=== PATIENT | female | born 1980 | race African-American/Black ===

== ENCOUNTER 2019-10-29 11:19 | Emergency (ER) | payer SELFPAY ==
[~2019-10-29] VITALS: Ht 152.4 cm; Wt 59.0 kg
[2019-10-29] MEDS ORDERED: FAMOTIDINE 20MG/2ML VIAL IV STA (11:39)
[2019-10-29] MEDS ORDERED: MORPHINE SULFATE 4 MG/ML CPJ (NOT FOR IM USE) IV STA (11:39)
[2019-10-29] MEDS ORDERED: SODIUM CHLORIDE 0.9% 1,000 ML IV ONE (11:39)
[2019-10-29 13:59] LABS: CLARITY URINE CLOUDY (CLEAR); COLOR URINE YELLOW (YELLOW); KETONES URINE 1+ (NEGATIVE); LEUKOCYTE ESTERASE URINE TRACE (NEGATIVE); NITRITE URINE NEGATIVE (NEGATIVE); OCCULT BLOOD URINE NEGATIVE (NEGATIVE); PH URINE 8.5 (4.5-8.0); PROTEIN URINE TRACE (NEGATIVE); SPECIFIC GRAVITY URINE 1.025 (1.005-1.030)
[2019-10-29 14:26] LABS: *AMPHETAMINES SCREEN URINE NEGATIVE (NEGATIVE); *BARBITURATES SCREEN URINE NEGATIVE (NEGATIVE); *BENZODIAZEPINES SCREEN URINE NEGATIVE (NEGATIVE); *COCAINE SCREEN URINE NEGATIVE (NEGATIVE); METHADONE URINE SCREEN NEGATIVE (NEGATIVE)
[2019-10-29 14:27] LABS: PHENCYCLIDINE URINE SCREEN NEGATIVE (NEGATIVE)
[2019-10-29 14:32] LABS: OPIATES URINE SCREEN PRESUMTIVE POSITIVE (NEGATIVE)
[2019-10-29 14:41] LABS: CANNABINOID URINE SCREEN NEGATIVE (NEGATIVE)
[2019-10-29 14:50] LABS: BASOPHILS % 0.8 % (0.0-2.0); HEMATOCRIT. 39.3 % (36.0-48.0); HEMOGLOBIN. 13.7 g/dL (12.0-16.0); LYMPHOCYTES % 14.8 % (20.0-50.0); MEAN CORPUSCULAR HEMOGLOBIN 30.6 pg (28.0-32.0); MEAN CORPUSCULAR VOLUME 87.9 fL (81.0-99.0); MONOCYTES % 2.5 % (2.0-8.0); NEUTROPHILS % 81.9 % (40.0-76.0); PLATELET 377 x1000/uL (130-400); RED BLOOD CELL COUNT 4.47 mill/uL (4.2-5.4); RED CELL DISTRIBUTION WIDTH 13.2 % (11.6-14.6)
[2019-10-29 14:51] LABS: CHLORIDE 107 mEq/L (98-107)
[2019-10-29 14:54] LABS: INR 1.1; PROTHROMBIN TIME 11.6 sec (9.6-11.0)
[2019-10-29 14:55] LABS: ETHANOL BLOOD < 10 mg/dL
[2019-10-29 15:00] LABS: HCG SCREEN NEGATIVE
[2019-10-29 15:10] VITALS: BP 144/85
[2019-10-29] MEDS ORDERED: MORPHINE SULFATE 4 MG/ML CPJ (NOT FOR IM USE) IV ONE (15:15)
== END 2019-10-29 15:30 | disposition left against medical advice (07) ==
LOC: ER 11:19
DX: R10.11 Right upper quadrant pain (principal); E87.6 Hypokalemia; R03.0 Elevated blood-pressure reading, without diagnosis of hypertension
CPT/HCPCS: 36415; 71045; 76705; 80053; 80305; 80320; 81003; 81025; 83690; 83735; 84703; 85025; 85610; 93005; 96374; 96375; 96376; 99285; J2270; J3490; J7030; G0480

== ENCOUNTER 2020-01-21 21:25 | Inpatient (IN) | payer BC, MEDICAID ==
[~2020-01-21] VITALS: Ht 162.6 cm; Wt 60.8 kg
[2020-01-21] MEDS ORDERED: FENTANYL CITRATE/PF 1,000 MCG in SODIUM CHLORIDE 0.9% 80 ML IV PRN ×4 (22:00)
[2020-01-21] MEDS ORDERED: SODIUM CHLORIDE 0.9% 1000ML BAG (SEPSIS BOLUS) IV ONE (22:00)
[2020-01-21] MEDS ORDERED: CEFEPIME HCL 1000MG/VIAL INJ IM ONE (22:00)
[2020-01-21] MEDS ORDERED: LORAZEPAM 2MG/ML CPJ ONE (22:03)
[2020-01-21] MEDS ORDERED: LORAZEPAM 2MG/ML CPJ IV ONE ×2 (22:15→23:00)
[2020-01-21 22:32] LABS: BASOPHILS % 0.5 % (0.0-2.0); EOSINOPHILS % 0.6 % (0.0-5.0); HEMATOCRIT. 36.7 % (36.0-48.0); HEMOGLOBIN. 12.4 g/dL (12.0-16.0); MEAN CORPUSCULAR HEMOGLOBIN 30.2 pg (28.0-32.0); MEAN CORPUSCULAR VOLUME 89.6 fL (81.0-99.0); MEAN PLATELET VOLUME 7.6 fl (7.4-10.4); MONOCYTES % 4.7 % (2.0-8.0); NEUTROPHILS % 48.2 % (40.0-76.0); PLATELET 396 x1000/uL (130-400)
[2020-01-21 22:42] LABS: CHLORIDE 96 mEq/L (98-107); INR 1.2; PROTHROMBIN TIME 12.2 sec (9.6-11.0)
[2020-01-21 22:53] LABS: HCG SCREEN NEGATIVE
[2020-01-21] MEDS ORDERED: LEVETIRACETAM 500MG PREMIX 100 ML IV ONE (23:00)
[2020-01-21 23:03] LABS: BG BASE EXCESS -8.2 mmol/L (-2.0-2.0); BG CARBOXYHEMOGLOBIN 0.3 % (0.5-1.5); BG DEOXYHEMOGLOBIN 0.3 % (0.0-5.0); BG FRACTION INSPIRED OXYGEN 100; BG HCO3 ACT 19.5 mmol/L (22.0-26.0); BG METHEMOGLOBIN 0.1 % (0.0-1.5); BG OXYGEN SATURATION 99.7 % (92.0-98.5); BG OXYHEMOGLOBIN 99.3 % (94.0-97.0); BG PCO2 49.2 mmHg (35.0-45.0); BG PH 7.217 (7.350-7.450); BG PO2 441.9 mmHg (75.0-100.0); BG SAMPLE SITE RIGHT RADIAL; BG TIDAL VOLUME(mL) 500 mL; BG TOTAL HEMOGLOBIN 12.3 g/dL (12.0-18.0); BG VENT MODE VENT - A/C; BG VENT RATE 16 set
[2020-01-21] MEDS ORDERED: PROPOFOL 10MG/ML 100ML 100 ML IV SCH (23:15)
[2020-01-21] MEDS ORDERED: KCL 20MEQ/100ML PREMIX 100 ML IV ONE (23:15)
[2020-01-21 23:16] LABS: CLARITY URINE CLEAR (CLEAR); COLOR URINE YELLOW (YELLOW); KETONES URINE NEGATIVE (NEGATIVE); LEUKOCYTE ESTERASE URINE NEGATIVE (NEGATIVE); NITRITE URINE NEGATIVE (NEGATIVE); OCCULT BLOOD URINE TRACE (NEGATIVE); PH URINE 6.5 (4.5-8.0); PROTEIN URINE 2+ (NEGATIVE); UROBILINOGEN URINE 0.2 E.U./dL (0.2-1.0)
[2020-01-22] VITALS (31 sets, daily range): BP systolic 107–146; BP diastolic 75–99
[2020-01-22] MEDS ORDERED: CEFEPIME 1,000 MG in DEXTROSE 5% WATER 50 ML IV SCH (00:15)
[2020-01-22] MEDS ORDERED: SODIUM CHLORIDE 0.45% 1,000 ML IV SCH (00:25)
[2020-01-22] MEDS ORDERED: ONDANSETRON HCL 4MG/2ML INJ IV PRN (00:30)
[2020-01-22] MEDS ORDERED: SODIUM CHLORIDE 0.9% 1,000 ML IV ONE (00:30)
[2020-01-22] MEDS ORDERED: CLONIDINE 0.1MG TABLET PO PRN (00:30)
[2020-01-22] MEDS ORDERED: LORAZEPAM 2MG/ML CPJ IV PRN (00:30)
[2020-01-22] MEDS ORDERED: DEXTROSE 50% WATER 50ML SYRINGE IV PRN (00:30)
[2020-01-22 05:10] LABS: *AMPHETAMINES SCREEN URINE NEGATIVE (NEGATIVE); *BARBITURATES SCREEN URINE NEGATIVE (NEGATIVE); CANNABINOID URINE SCREEN NEGATIVE (NEGATIVE); METHADONE URINE SCREEN NEGATIVE (NEGATIVE); PHENCYCLIDINE URINE SCREEN NEGATIVE (NEGATIVE)
[2020-01-22 05:11] LABS: *COCAINE SCREEN URINE NEGATIVE (NEGATIVE)
[2020-01-22 05:21] LABS: *BENZODIAZEPINES SCREEN URINE PRESUMTIVE POSITIVE (NEGATIVE); OPIATES URINE SCREEN PRESUMTIVE POSITIVE (NEGATIVE)
[2020-01-22 05:48] LABS: CHLORIDE 105 mEq/L (98-107)
[2020-01-22 05:51] LABS: BASOPHILS % 0.4 % (0.0-2.0); EOSINOPHILS % 0.2 % (0.0-5.0); HEMATOCRIT. 32.8 % (36.0-48.0); HEMOGLOBIN. 11.2 g/dL (12.0-16.0); MEAN CORPUSCULAR HEMOGLOBIN 30.2 pg (28.0-32.0); MEAN CORPUSCULAR VOLUME 88.5 fL (81.0-99.0); MEAN PLATELET VOLUME 7.5 fl (7.4-10.4); MONOCYTES % 6.3 % (2.0-8.0); NEUTROPHILS % 72.1 % (40.0-76.0); PLATELET 351 x1000/uL (130-400); RED BLOOD CELL COUNT 3.71 mill/uL (4.2-5.4); RED CELL DISTRIBUTION WIDTH 14.2 % (11.6-14.6)
[2020-01-22] MEDS: KCL 10MEQ/50ML PREMIX 50 ML IV SCH ×2 (06:52→07:05)
[2020-01-22] MEDS: HEPARIN 5000 UNITS/ML VIAL SUBCUT SCH ×3 (07:07→20:45)
[2020-01-22] MEDS ORDERED: BLOOD SUGAR DIAGNOSTIC STRIP TEST SCH (09:00)
[2020-01-22 09:54] LABS: BG BASE EXCESS -2.9 mmol/L (-2.0-2.0); BG CARBOXYHEMOGLOBIN 0.3 % (0.5-1.5); BG DEOXYHEMOGLOBIN 0.9 % (0.0-5.0); BG FRACTION INSPIRED OXYGEN 40; BG HCO3 ACT 20.1 mmol/L (22.0-26.0); BG METHEMOGLOBIN 0.4 % (0.0-1.5); BG OXYGEN SATURATION 99.1 % (92.0-98.5); BG OXYHEMOGLOBIN 98.4 % (94.0-97.0); BG PH 7.458 (7.350-7.450); BG PO2 186.2 mmHg (75.0-100.0); BG SAMPLE SITE RIGHT RADIAL; BG TIDAL VOLUME(mL) 500 mL; BG VENT MODE VENT - A/C; BG VENT RATE 16 set
[2020-01-22] MEDS ORDERED: POTASSIUM CHLORIDE INJ 40 MEQ in DEXT 5% WATER 250 ML IV SCH (11:00)
[2020-01-22] MEDS ORDERED: LEVETIRACETAM 500MG PREMIX 100 ML IV SCH (11:00)
[2020-01-22] MEDS ORDERED: MAGNESIUM 2 G PREMIX 50 ML IV SCH (11:00)
[2020-01-22] MEDS ORDERED: PROPOFOL 10MG/ML 100ML 100 ML IV SCH (11:00)
[2020-01-22] MEDS ORDERED: IPRATROPIUM/ALBUTEROL 0.5-3(2.5)MG/3ML NEB HHN PRN (11:00)
[2020-01-22] MEDS: INSULIN LISPRO 100 UNITS/ML SUBCUT SCH ×4 (13:08→23:24)
[2020-01-22] MEDS ORDERED: POTASSIUM CHLORIDE 20MEQ/PACKET PO NR (13:10)
[2020-01-22] MEDS: PROPOFOL 10MG/ML 100ML 100 ML IV PRN ×2 (13:15→23:39)
[2020-01-22] MEDS: LEVETIRACETAM 500MG PREMIX 100 ML IV SCH ×2 (13:35→20:43)
[2020-01-22] MEDS: IPRATROPIUM/ALBUTEROL 0.5-3(2.5)MG/3ML NEB HHN SCH ×2 (14:49→20:59)
[2020-01-22] MEDS ORDERED: SERT25TA74 MT (15:32)
[2020-01-22] MEDS ORDERED: AMLO10TA80 PO (15:32)
[2020-01-22] MEDS ORDERED: LOSA-20 MT (15:32)
[2020-01-22] MEDS: CEFEPIME 1,000 MG in DEXTROSE 5% WATER 50 ML IV SCH (17:31)
[2020-01-22] MEDS: BLOOD SUGAR DIAGNOSTIC STRIP TEST SCH ×2 (17:32→23:24)
[2020-01-22] MEDS: ACETAMINOPHEN 325MG TABLET PO PRN (20:43)
[2020-01-22] MEDS: THIAMINE HCL 100MG TABLET PO SCH (20:47)
[2020-01-23] VITALS (41 sets, daily range): BP systolic 118–177; BP diastolic 55–105
[2020-01-23] MEDS: PROPOFOL 10MG/ML 100ML 100 ML IV PRN ×2 (02:45→06:49)
[2020-01-23] MEDS: ACETAMINOPHEN 325MG TABLET PO PRN (04:34)
[2020-01-23] MEDS: INSULIN LISPRO 100 UNITS/ML SUBCUT SCH ×3 (05:28→18:00)
[2020-01-23] MEDS: CEFEPIME 1,000 MG in DEXTROSE 5% WATER 50 ML IV SCH (05:28)
[2020-01-23] MEDS: BLOOD SUGAR DIAGNOSTIC STRIP TEST SCH ×3 (05:28→18:21)
[2020-01-23 05:55] LABS: BASOPHILS % 0.4 % (0.0-2.0); CHLORIDE 106 mEq/L (98-107); HEMATOCRIT. 29.5 % (36.0-48.0); LYMPHOCYTES % 12.1 % (20.0-50.0); MEAN CORPUSCULAR HEMOGLOBIN 30.1 pg (28.0-32.0); MEAN CORPUSCULAR VOLUME 88.9 fL (81.0-99.0); MEAN PLATELET VOLUME 7.3 fl (7.4-10.4); MONOCYTES % 6.6 % (2.0-8.0); NEUTROPHILS % 79.9 % (40.0-76.0); PLATELET 256 x1000/uL (130-400); RED BLOOD CELL COUNT 3.32 mill/uL (4.2-5.4); RED CELL DISTRIBUTION WIDTH 14.6 % (11.6-14.6)
[2020-01-23] MEDS: LEVETIRACETAM 500MG PREMIX 100 ML IV SCH ×2 (08:00→20:21)
[2020-01-23] MEDS: SERTRALINE HCL 25MG TABLET PEG SCH (08:01)
[2020-01-23] MEDS: THIAMINE HCL 100MG TABLET PO SCH (08:01)
[2020-01-23] MEDS: HEPARIN 5000 UNITS/ML VIAL SUBCUT SCH ×2 (08:01→20:21)
[2020-01-23] MEDS: IPRATROPIUM/ALBUTEROL 0.5-3(2.5)MG/3ML NEB HHN SCH ×4 (08:20→21:29)
[2020-01-23] MEDS ORDERED: MAGNESIUM 2 G PREMIX 50 ML IV SCH (10:00)
[2020-01-23 12:12] LABS: BG BASE EXCESS -1.4 mmol/L (-2.0-2.0); BG CARBOXYHEMOGLOBIN 0.3 % (0.5-1.5); BG DEOXYHEMOGLOBIN 0.8 % (0.0-5.0); BG FRACTION INSPIRED OXYGEN 40; BG METHEMOGLOBIN 0.4 % (0.0-1.5); BG OXYGEN SATURATION 99.2 % (92.0-98.5); BG OXYHEMOGLOBIN 98.5 % (94.0-97.0); BG PCO2 32.3 mmHg (35.0-45.0); BG PH 7.451 (7.350-7.450); BG PO2 187.2 mmHg (75.0-100.0); BG PRESSURE SUPPORT 8; BG SAMPLE SITE RIGHT RADIAL; BG TOTAL HEMOGLOBIN 11.1 g/dL (12.0-18.0); BG VENT MODE VENT - CPAP
[2020-01-23] MEDS: HYDROCODONE/ACETAMINOPHEN 5/325MG TABLET PO PRN (18:21)
[2020-01-23] MEDS: METOPROLOL TARTRATE 25MG TABLET PO SCH (20:21)
[2020-01-24] VITALS (34 sets, daily range): BP systolic 110–141; BP diastolic 60–99
[2020-01-24] MEDS: IPRATROPIUM/ALBUTEROL 0.5-3(2.5)MG/3ML NEB HHN SCH ×4 (01:17→20:36)
[2020-01-24] MEDS: INSULIN LISPRO 100 UNITS/ML SUBCUT SCH ×5 (06:00→21:00)
[2020-01-24] MEDS: BLOOD SUGAR DIAGNOSTIC STRIP TEST SCH ×5 (06:04→21:00)
[2020-01-24 06:23] LABS: CHLORIDE 106 mEq/L (98-107)
[2020-01-24 06:30] LABS: BASOPHILS % 0.4 % (0.0-2.0); EOSINOPHILS % 1.3 % (0.0-5.0); HEMATOCRIT. 30.6 % (36.0-48.0); HEMOGLOBIN. 10.1 g/dL (12.0-16.0); LYMPHOCYTES % 14.5 % (20.0-50.0); MEAN CORPUSCULAR HEMOGLOBIN 29.3 pg (28.0-32.0); MEAN CORPUSCULAR VOLUME 88.8 fL (81.0-99.0); MEAN PLATELET VOLUME 7.9 fl (7.4-10.4); MONOCYTES % 5.1 % (2.0-8.0); NEUTROPHILS % 78.7 % (40.0-76.0); PLATELET 249 x1000/uL (130-400); RED BLOOD CELL COUNT 3.44 mill/uL (4.2-5.4); RED CELL DISTRIBUTION WIDTH 14.6 % (11.6-14.6)
[2020-01-24] MEDS: THIAMINE HCL 100MG TABLET PO SCH (09:19)
[2020-01-24] MEDS: SERTRALINE HCL 25MG TABLET PEG SCH (09:19)
[2020-01-24] MEDS: METOPROLOL TARTRATE 25MG TABLET PO SCH ×2 (09:20→21:34)
[2020-01-24] MEDS: LEVETIRACETAM 500MG PREMIX 100 ML IV SCH ×2 (09:21→21:35)
[2020-01-24] MEDS: HEPARIN 5000 UNITS/ML VIAL SUBCUT SCH ×2 (09:21→21:34)
[2020-01-24] MEDS: HYDROCODONE/ACETAMINOPHEN 5/325MG TABLET PO PRN ×3 (11:09→21:52)
[2020-01-24] MEDS: GUAIFENESIN 600MG ER TABLET PO SCH ×2 (11:10→21:34)
[2020-01-24] MEDS ORDERED: GADOBENATE DIMEGLUMINE 529 MG/ML 10ML IV ONE (15:47)
[2020-01-25] VITALS (10 sets, daily range): BP systolic 112–150; BP diastolic 47–89
[2020-01-25] MEDS: IPRATROPIUM/ALBUTEROL 0.5-3(2.5)MG/3ML NEB HHN SCH ×2 (01:37→08:00)
[2020-01-25 06:19] LABS: CHLORIDE 104 mEq/L (98-107)
[2020-01-25 06:39] LABS: BASOPHILS % 0.9 % (0.0-2.0); EOSINOPHILS % 3.1 % (0.0-5.0); HEMATOCRIT. 29.4 % (36.0-48.0); HEMOGLOBIN. 9.9 g/dL (12.0-16.0); LYMPHOCYTES % 29.2 % (20.0-50.0); MEAN CORPUSCULAR HEMOGLOBIN 29.6 pg (28.0-32.0); MEAN CORPUSCULAR VOLUME 87.9 fL (81.0-99.0); MEAN PLATELET VOLUME 8.2 fl (7.4-10.4); MONOCYTES % 7.4 % (2.0-8.0); NEUTROPHILS % 59.4 % (40.0-76.0); PLATELET 267 x1000/uL (130-400); RED BLOOD CELL COUNT 3.34 mill/uL (4.2-5.4); RED CELL DISTRIBUTION WIDTH 14.1 % (11.6-14.6)
[2020-01-25] MEDS: INSULIN LISPRO 100 UNITS/ML SUBCUT SCH ×2 (07:30→12:30)
[2020-01-25] MEDS: BLOOD SUGAR DIAGNOSTIC STRIP TEST SCH ×2 (08:19→13:16)
[2020-01-25] MEDS: HEPARIN 5000 UNITS/ML VIAL SUBCUT SCH (09:04)
[2020-01-25] MEDS: SERTRALINE HCL 25MG TABLET PEG SCH (09:04)
[2020-01-25] MEDS: METOPROLOL TARTRATE 25MG TABLET PO SCH (09:04)
[2020-01-25] MEDS: GUAIFENESIN 600MG ER TABLET PO SCH (09:05)
[2020-01-25] MEDS: LEVETIRACETAM 500MG PREMIX 100 ML IV SCH (09:05)
[2020-01-25] MEDS: THIAMINE HCL 100MG TABLET PO SCH (09:05)
[2020-01-25] MEDS: HYDROCODONE/ACETAMINOPHEN 5/325MG TABLET PO PRN (09:14)
[2020-01-25] MEDS: ACETAMINOPHEN 325MG TABLET PO PRN (11:19)
[2020-01-25] MEDS ORDERED: KEPP500 MT (11:45)
[2020-01-25] MEDS ORDERED: POTASSIUM CHLORIDE 20MEQ/PACKET PO NR (11:45)
[2020-01-25] MEDS ORDERED: METO25TA6 PO (11:45)
[2020-01-25] MEDS ORDERED: MAGNESIUM 2 G PREMIX 50 ML IV ONE (13:00)
== END 2020-01-25 18:32 | disposition home or self-care (01) | DRG 208 ==
LOC: ER 21:25 → CVICU 23:06 → EDBEDREQ 23:31 → EDBEDREQTM 23:31 → EDBEDREQSVC 23:31 → ENRESERV 01-22 08:09 → CVICU 01-22 10:17 → 5EST 01-24 15:31
PROVIDERS: ADMIT Internal Medicine; ATTEND Internal Medicine
PROC: 5A1945Z Respiratory Ventilation, 24-96 Consecutive Hours (ICD-10-PCS; principal; 2020-01-21)
PROC: 0BH17EZ Insertion of Endotracheal Airway into Trachea, Via Natural or Artificial Opening (ICD-10-PCS; 2020-01-21)
DX: J96.02 Acute respiratory failure with hypercapnia (principal); J69.0 Pneumonitis due to inhalation of food and vomit; G92 Toxic encephalopathy; E87.2 Acidosis; F11.20 Opioid dependence, uncomplicated; G40.901 Epilepsy, unspecified, not intractable, with status epilepticus; I10 Essential (primary) hypertension; E83.42 Hypomagnesemia; E87.6 Hypokalemia; D64.9 Anemia, unspecified; F32.9 Major depressive disorder, single episode, unspecified; F41.9 Anxiety disorder, unspecified; R62.7 Adult failure to thrive
CPT/HCPCS: 36415; 36600; 70553; 71045; 80048; 80053; 80061; 80305; 81003; 82375; 82805; 82962; 83036; 83605; 83735; 83880; 84145; 84478; 84484; 84703; 85025; 92610; 93005; 93306; 93970; 94002; 94003; 94640; 95816; 99291; A9577; J0692; J1644; J1953; J2060; J2704; J3010; J3475; J3480; J7030; J7050; J7060

== ENCOUNTER 2020-02-04 11:07 | Inpatient (IN) | payer BC, MEDICAID ==
[~2020-02-04] VITALS: Ht 152.4 cm; Wt 59.0 kg
[~2020-02-04 11:07] MED LIST: KEPP500 MT; METO25TA6 PO; SERT25TA74 MT
[2020-02-04] MEDS ORDERED: FAMOTIDINE 20MG/2ML VIAL IV STA (11:21)
[2020-02-04] MEDS ORDERED: ONDANSETRON HCL 4MG/2ML INJ IV STA (11:21)
[2020-02-04] MEDS ORDERED: ACETAMINOPHEN 325MG TABLET PO STA (11:21)
[2020-02-04] MEDS ORDERED: SODIUM CHLORIDE 0.9% 1,000 ML IV ONE (11:45)
[2020-02-04 12:21] LABS: BASOPHILS % 0.7 % (0.0-2.0); EOSINOPHILS % 0.2 % (0.0-5.0); HEMATOCRIT. 33.6 % (36.0-48.0); HEMOGLOBIN. 11.3 g/dL (12.0-16.0); MEAN CORPUSCULAR HEMOGLOBIN 30.2 pg (28.0-32.0); MEAN CORPUSCULAR VOLUME 90.2 fL (81.0-99.0); MEAN PLATELET VOLUME 7.1 fl (7.4-10.4); NEUTROPHILS % 64.1 % (40.0-76.0); PLATELET 459 x1000/uL (130-400); RED BLOOD CELL COUNT 3.72 mill/uL (4.2-5.4); RED CELL DISTRIBUTION WIDTH 15.2 % (11.6-14.6)
[2020-02-04 12:35] LABS: CHLORIDE 108 mEq/L (98-107)
[2020-02-04 12:35] LABS: CLARITY URINE CLOUDY (CLEAR); COLOR URINE YELLOW (YELLOW); KETONES URINE TRACE (NEGATIVE); LEUKOCYTE ESTERASE URINE NEGATIVE (NEGATIVE); NITRITE URINE NEGATIVE (NEGATIVE); OCCULT BLOOD URINE NEGATIVE (NEGATIVE); PH URINE 5.5 (4.5-8.0); PROTEIN URINE TRACE (NEGATIVE); SPECIFIC GRAVITY URINE 1.026 (1.005-1.030)
[2020-02-04 12:37] LABS: HCG SCREEN NEGATIVE
[2020-02-04] MEDS ORDERED: ONDANSETRON HCL 4MG/2ML INJ IV ONE (13:15)
[2020-02-04] MEDS ORDERED: MORPHINE SULFATE 4 MG/ML CPJ (NOT FOR IM USE) IV ONE ×2 (13:15→15:30)
[2020-02-04] MEDS ORDERED: ONDANSETRON HCL 4MG/2ML INJ IV NR (14:00)
[2020-02-04] MEDS ORDERED: SODIUM CHLORIDE 0.9% 1,000 ML IV SCH (16:28)
[2020-02-04] MEDS ORDERED: ACETAMINOPHEN 325MG TABLET PO PRN ×2 (16:30)
[2020-02-04] MEDS ORDERED: NITROGLYCERIN 0.4MG TABLET SL SL PRN (16:30)
[2020-02-04] MEDS ORDERED: MAGNESIUM/ALUMINUM HYDROXIDE/SIMETHICONE 30ML UDC PO PRN (16:30)
[2020-02-04] MEDS ORDERED: LORAZEPAM 2MG/ML CPJ IV ONE (16:30)
[2020-02-04] MEDS ORDERED: LEVOFLOXACIN 750MG PREMIX 150 ML IV NR (16:30)
[2020-02-04] MEDS ORDERED: CLONIDINE 0.1MG TABLET PO PRN (16:30)
[2020-02-04 20:00] VITALS: BP 158/93
[2020-02-04] MEDS: LEVETIRACETAM 500MG TABLET PO SCH (20:04)
[2020-02-04] MEDS: ONDANSETRON HCL 4MG/2ML INJ IV PRN (20:04)
[2020-02-04] MEDS: KETOROLAC 15MG/ML VIAL IV PRN (20:06)
[2020-02-04] MEDS: LORAZEPAM 2MG/ML CPJ IV PRN (20:55)
[2020-02-04] MEDS ORDERED: ZOLPIDEM TARTRATE 5MG TABLET PO PRN (21:00)
[2020-02-04 21:57] VITALS: BP 158/93
[2020-02-05 00:13] VITALS: BP 130/76
[2020-02-05] MEDS: ONDANSETRON HCL 4MG/2ML INJ IV PRN ×5 (00:20→20:20)
[2020-02-05] MEDS: KETOROLAC 15MG/ML VIAL IV PRN ×3 (02:10→20:23)
[2020-02-05] MEDS: LORAZEPAM 2MG/ML CPJ IV PRN ×3 (02:58→18:35)
[2020-02-05 04:00] VITALS: BP 168/82
[2020-02-05 08:00] VITALS: BP 159/78
[2020-02-05] MEDS: PANTOPRAZOLE SODIUM 40 MG/VIAL IV SCH (08:31)
[2020-02-05] MEDS: LEVETIRACETAM 500MG TABLET PO SCH ×2 (08:32→20:20)
[2020-02-05 12:00] VITALS: BP 149/80
[2020-02-05] MEDS: LEVOFLOXACIN 500MG PREMIX 100 ML IV SCH (14:30)
[2020-02-05 16:00] VITALS: BP 164/93
[2020-02-05] MEDS: ENOXAPARIN 40MG/0.4ML SYR SUBCUT SCH ×2 (16:00→17:06)
[2020-02-05 20:00] VITALS: BP 147/66
[2020-02-06] VITALS: BP 157/91
[2020-02-06] MEDS: LORAZEPAM 2MG/ML CPJ IV PRN ×2 (00:02→10:18)
[2020-02-06] MEDS: ONDANSETRON HCL 4MG/2ML INJ IV PRN ×2 (02:49→12:01)
[2020-02-06] MEDS: KETOROLAC 15MG/ML VIAL IV PRN ×2 (02:51→10:18)
[2020-02-06 04:00] VITALS: BP 159/93
[2020-02-06] MEDS: LEVETIRACETAM 500MG TABLET PO SCH (09:00)
[2020-02-06] MEDS: PANTOPRAZOLE SODIUM 40 MG/VIAL IV SCH (10:17)
[2020-02-06] MEDS ORDERED: PROMETHAZINE HCL 25MG SUPP PR NR (13:00)
[2020-02-06] MEDS: LEVOFLOXACIN 500MG PREMIX 100 ML IV SCH (13:00)
== END 2020-02-06 14:43 | disposition home or self-care (01) | DRG 392 ==
LOC: ER 11:07 → EDBEDREQTM 14:04 → 6EST 16:32 → EDBEDREQ 16:37 → ENRESERV 17:11
PROVIDERS: ADMIT Internal Medicine; ATTEND Internal Medicine
DX: K29.70 Gastritis, unspecified, without bleeding (principal); D64.9 Anemia, unspecified; G40.909 Epilepsy, unspecified, not intractable, without status epilepticus; I10 Essential (primary) hypertension; Z76.5 Malingerer [conscious simulation]; Z90.49 Acquired absence of other specified parts of digestive tract; Z88.0 Allergy status to penicillin; Z88.8 Allergy status to other drugs, medicaments and biological substances; Z79.899 Other long term (current) drug therapy; Z90.710 Acquired absence of both cervix and uterus
CPT/HCPCS: 36415; 76700; 80053; 81003; 83036; 84703; 85025; 93005; 93970; 96374; 99285; C9113; J1650; J1885; J1956; J2060; J2270; J2405; J3490; J7030

== ENCOUNTER 2020-12-18 07:10 | Inpatient (IN) | payer MEDICAID, OTHER ==
[~2020-12-18] VITALS: Ht 152.4 cm; Wt 59.1 kg
[~2020-12-18 07:10] MED LIST changes: +ONDA8TAB59 PO
[2020-12-18] MEDS ORDERED: MORPHINE SULFATE 4 MG/ML CPJ (NOT FOR IM USE) IV STA (08:29)
[2020-12-18] MEDS ORDERED: ONDANSETRON HCL 4MG/2ML INJ IV STA (08:29)
[2020-12-18] MEDS ORDERED: SODIUM CHLORIDE 0.9% 1,000 ML IV ONE (08:30)
[2020-12-18 09:49] LABS: CHLORIDE 101 mEq/L (98-107)
[2020-12-18 09:50] LABS: BASOPHILS % 0.8 % (0.0-2.0); EOSINOPHILS % 0.3 % (0.0-5.0); HEMATOCRIT. 41.7 % (36.0-48.0); HEMOGLOBIN. 14.5 g/dL (12.0-16.0); MEAN CORPUSCULAR HEMOGLOBIN 29.3 pg (28.0-32.0); MEAN CORPUSCULAR VOLUME 84.5 fL (81.0-99.0); MEAN PLATELET VOLUME 7.5 fl (7.4-10.4); MONOCYTES % 9.4 % (2.0-8.0); NEUTROPHILS % 62.5 % (40.0-76.0); PLATELET 524 x1000/uL (130-400); RED BLOOD CELL COUNT 4.94 mill/uL (4.2-5.4)
[2020-12-18 09:52] LABS: INR 1.1; PROTHROMBIN TIME 11.4 sec (9.6-11.0)
[2020-12-18 09:56] LABS: CLARITY URINE CLEAR (CLEAR); COLOR URINE YELLOW (YELLOW); KETONES URINE 1+ (NEGATIVE); LEUKOCYTE ESTERASE URINE NEGATIVE (NEGATIVE); NITRITE URINE NEGATIVE (NEGATIVE); OCCULT BLOOD URINE NEGATIVE (NEGATIVE); PROTEIN URINE 1+ (NEGATIVE); SPECIFIC GRAVITY URINE 1.017 (1.005-1.030)
[2020-12-18 10:00] LABS: HCG SCREEN NEGATIVE
[2020-12-18] MEDS ORDERED: MORPHINE SULFATE 4 MG/ML CPJ (NOT FOR IM USE) IV ONE ×2 (10:00→12:15)
[2020-12-18] MEDS ORDERED: IOHEXOL-300 100 ML BOTTLE ONE (14:56)
[2020-12-18] MEDS ORDERED: MAGNESIUM/ALUMINUM HYDROXIDE/SIMETHICONE 30ML UDC PO PRN (16:15)
[2020-12-18] MEDS ORDERED: LORAZEPAM 2MG/ML CPJ IV PRN (16:15)
[2020-12-18] MEDS ORDERED: DIPHENHYDRAMINE 50MG/ML VIAL IV PRN (16:15)
[2020-12-18] MEDS ORDERED: HYDRALAZINE 20MG/ML VIAL IV PRN (16:15)
[2020-12-18] MEDS ORDERED: IPRATROPIUM/ALBUTEROL 0.5-3(2.5)MG/3ML NEB HHN PRN (16:15)
[2020-12-18] MEDS ORDERED: ACETAMINOPHEN 325MG TABLET PO PRN (16:15)
[2020-12-18] MEDS ORDERED: HYDROCODONE/ACETAMINOPHEN 5/325MG TABLET PO PRN (16:15)
[2020-12-18] MEDS ORDERED: GUAIFENESIN 200MG/10ML SUGAR FREE UDC PO PRN (16:15)
[2020-12-18] MEDS ORDERED: DOCUSATE SODIUM 100MG CAPSULE PO PRN (16:15)
[2020-12-18] MEDS ORDERED: NALOXONE HCL 0.4MG/ML VIAL IV PRN (16:45)
[2020-12-18] MEDS: MORPHINE SULFATE 2 MG/ML CPJ (NOT FOR IM USE) IV PRN (17:06)
[2020-12-18] MEDS: CLONIDINE 0.1MG TABLET PO PRN (20:09)
[2020-12-18 20:55] VITALS: BP 174/111
[2020-12-18] MEDS ORDERED: POTASSIUM CHLORIDE 20MEQ TABLET SR PO NR (22:45)
[2020-12-18] MEDS: SODIUM CHLORIDE 0.9% INJ 3ML FLUSH IVF SCH (23:23)
[2020-12-18] MEDS: ENOXAPARIN 40MG/0.4ML SYR SUBCUT SCH (23:24)
[2020-12-19] VITALS: BP 169/105
[2020-12-19] MEDS: MORPHINE SULFATE 2 MG/ML CPJ (NOT FOR IM USE) IV PRN ×4 (00:19→21:02)
[2020-12-19 04:00] VITALS: BP 184/118
[2020-12-19] MEDS: CLONIDINE 0.1MG TABLET PO PRN ×2 (04:23→13:47)
[2020-12-19] MEDS: SODIUM CHLORIDE 0.9% INJ 3ML FLUSH IVF SCH ×3 (05:41→21:01)
[2020-12-19] MEDS: ONDANSETRON HCL 4MG/2ML INJ IV PRN ×2 (05:41→14:33)
[2020-12-19 06:28] LABS: CHLORIDE 105 mEq/L (98-107)
[2020-12-19 06:56] LABS: BASOPHILS % 1.1 % (0.0-2.0); EOSINOPHILS % 0.2 % (0.0-5.0); HEMATOCRIT. 38.7 % (36.0-48.0); HEMOGLOBIN. 13.1 g/dL (12.0-16.0); LYMPHOCYTES % 31.4 % (20.0-50.0); MEAN CORPUSCULAR VOLUME 85.9 fL (81.0-99.0); MEAN PLATELET VOLUME 8.2 fl (7.4-10.4); MONOCYTES % 8.9 % (2.0-8.0); NEUTROPHILS % 58.4 % (40.0-76.0); PLATELET 381 x1000/uL (130-400); RED BLOOD CELL COUNT 4.51 mill/uL (4.2-5.4); RED CELL DISTRIBUTION WIDTH 14.9 % (11.6-14.6)
[2020-12-19 08:00] VITALS: BP 166/106
[2020-12-19] MEDS: POLYETHYLENE GLYCOL 3350 (17GM) 1 DOSE PACK PO SCH (09:41)
[2020-12-19 12:00] VITALS: BP 161/100
[2020-12-19 13:39] LABS: *AMPHETAMINES SCREEN URINE NEGATIVE (NEGATIVE); *BARBITURATES SCREEN URINE NEGATIVE (NEGATIVE); *COCAINE SCREEN URINE NEGATIVE (NEGATIVE); METHADONE URINE SCREEN NEGATIVE (NEGATIVE)
[2020-12-19 13:40] LABS: CANNABINOID URINE SCREEN NEGATIVE (NEGATIVE)
[2020-12-19 13:41] LABS: PHENCYCLIDINE URINE SCREEN NEGATIVE (NEGATIVE)
[2020-12-19 13:49] LABS: *BENZODIAZEPINES SCREEN URINE PRESUMTIVE POSITIVE (NEGATIVE)
[2020-12-19 13:50] LABS: OPIATES URINE SCREEN PRESUMTIVE POSITIVE (NEGATIVE)
[2020-12-19] MEDS ORDERED: HYDRALAZINE 10 MG in SODIUM CHLORIDE 0.9% 49.5 ML IV PRN (14:30)
[2020-12-19 16:00] VITALS: BP 132/85
[2020-12-19] MEDS: OMEPRAZOLE 20MG CAPSULE EXTENDED RELEASE PO SCH (16:44)
[2020-12-19] MEDS: ENOXAPARIN 40MG/0.4ML SYR SUBCUT SCH (16:45)
[2020-12-19] MEDS ORDERED: POTASSIUM CHLORIDE 20MEQ TABLET SR PO NR (17:00)
[2020-12-19 20:00] VITALS: BP 154/89
[2020-12-20] VITALS: BP 123/68
[2020-12-20] MEDS: MORPHINE SULFATE 2 MG/ML CPJ (NOT FOR IM USE) IV PRN ×3 (03:26→17:03)
[2020-12-20 04:00] VITALS: BP 183/112
[2020-12-20] MEDS: CLONIDINE 0.1MG TABLET PO PRN ×2 (04:40→17:01)
[2020-12-20 06:00] VITALS: BP 150/105
[2020-12-20] MEDS: OMEPRAZOLE 20MG CAPSULE EXTENDED RELEASE PO SCH (06:17)
[2020-12-20] MEDS: SODIUM CHLORIDE 0.9% INJ 3ML FLUSH IVF SCH ×3 (06:17→22:00)
[2020-12-20] MEDS: ONDANSETRON HCL 4MG/2ML INJ IV PRN ×2 (09:36→17:01)
[2020-12-20] MEDS: POLYETHYLENE GLYCOL 3350 (17GM) 1 DOSE PACK PO SCH (09:42)
[2020-12-20 12:00] VITALS: BP_SYST 145; BP_SYST 147; BP_DIAS 97; BP_DIAS 98
[2020-12-20 16:12] VITALS: BP 147/98
[2020-12-20] MEDS: ENOXAPARIN 40MG/0.4ML SYR SUBCUT SCH (17:02)
[2020-12-20 20:00] VITALS: BP 122/69
[2020-12-21] VITALS: BP 100/63
[2020-12-21 04:00] VITALS: BP 119/76
[2020-12-21] MEDS: SODIUM CHLORIDE 0.9% INJ 3ML FLUSH IVF SCH (06:40)
[2020-12-21] MEDS: OMEPRAZOLE 20MG CAPSULE EXTENDED RELEASE PO SCH (06:40)
[2020-12-21 08:00] VITALS: BP 130/86
[2020-12-21] MEDS: POLYETHYLENE GLYCOL 3350 (17GM) 1 DOSE PACK PO SCH (09:00)
[2020-12-21 12:00] VITALS: BP 122/82
[2020-12-21] MEDS: ONDANSETRON HCL 4MG/2ML INJ IV PRN (12:05)
[2020-12-21] MEDS: MORPHINE SULFATE 2 MG/ML CPJ (NOT FOR IM USE) IV PRN (12:06)
[2020-12-21 15:41] VITALS: BP 122/84
[2020-12-22] MEDS ORDERED: FAMOTIDINE 20MG TABLET PO SCH (09:00)
== END 2020-12-21 16:29 | disposition home or self-care (01) | DRG 251 ==
LOC: ER 07:10 → 6EST 12:41 → ENRESERV 20:12
PROVIDERS: ADMIT Internal Medicine; ATTEND Internal Medicine
DX: R10.9 Unspecified abdominal pain (principal); E87.6 Hypokalemia; F41.9 Anxiety disorder, unspecified; I10 Essential (primary) hypertension; Z90.710 Acquired absence of both cervix and uterus; Z79.899 Other long term (current) drug therapy; Z88.0 Allergy status to penicillin; Z90.49 Acquired absence of other specified parts of digestive tract; Z88.8 Allergy status to other drugs, medicaments and biological substances
CPT/HCPCS: 36415; 74177; 80053; 80305; 81003; 83735; 84703; 85025; 99285; J0360; J1200; J1650; J2270; J2405; J7030; Q9967